=== PATIENT | male | born 1960 | race Two or more races ===

== ENCOUNTER 2024-12-24 14:22 | Emergency (ER) | payer OTHER ==
[~2024-12-24] VITALS: Ht 162.6 cm; Wt 68.9 kg
--- NOTE | 2024-12-24 14:30 | NUR ---
CT READY FOR PT. LEONA GAYTAN MADE AWARE
--- NOTE | 2024-12-24 14:48 | HMCIMG ---
EXAM: CT Head Without IV contrast. CLINICAL HISTORY: LEFT EYE BLURRED VISION TECHNIQUE: Axial computed tomography images of the head/brain without intravenous contrast. COMPARISON: None provided. FINDINGS: BRAIN: No evidence of acute hemorrhage. No mass lesion. No CT evidence for acute territorial infarct. No midline shift or extra-axial collections. VENTRICLES: No hydrocephalus. ORBITS: The orbits are unremarkable. SINUSES AND MASTOIDS: The paranasal sinuses and mastoid air cells are clear. BONES: No fracture. SOFT TISSUES: Unremarkable. IMPRESSION: No acute intracranial abnormality. /[place]
[2024-12-24 14:57] LABS: IMMATURE GRANULOCYTE ABSOLUTE 0.03 K/uL (0-1); NUCLEATED RED BLOOD CELLS 0.0 % (0.0-0.19); PLATELET COUNT (AUTO) 179 K/uL (130-400); RED BLOOD CELL COUNT(AUTO) 4.77 MIL/uL (4.00-5.50); RED CELL DISTRIBUTION WIDTH 12.5 % (11.0-15.5); WHITE BLOOD COUNT (AUTO) 11.5 K/uL (4.8-10.8)
[2024-12-24 15:06] LABS: CREATININE 0.9 mg/dL (0.5-1.0); GLOMERULAR FILTR. RATE CALC 72.0 mL/min (>90); GLUCOSE,RANDOM 183.0 mg/dL (70-105); SODIUM SERUM 139.0 mmol/L (136-145); UREA NITROGEN, BLOOD 18.0 mg/dL (7-18)
[2024-12-24 16:12] VITALS: BP 107/77; PULSE 85; RESP 16; TEMP 98.1; O2SAT 98
[2024-12-24] MEDS ORDERED: ACYC-138 PO (16:13)
[2024-12-24] MEDS ORDERED: PRED20TA3 PO ×2 (16:13→16:14)
--- NOTE | 2024-12-24 16:26 | ERN ---
General Chief Complaint: Stroke Symptoms Stated Complaint: STROKE SYMPTOMS Time Seen by MD: 15:02 Time Seen by Midlevel: 15:02 Source: patient History of Present Illness Initial Comments Patient is a 64-year-old male presenting to the emergency department for evaluation of left facial droop that began several days ago but worsened today. No other symptoms are reported. Patients specifically denies any numbness/weakness to his upper and lower extremities. Patient is neurologically at his baseline according to family members. There was no slurred speech, confusion, or altered mental status at this time. Patient has no other complaints. Family states a similar episode occurred 10 years ago which resolved after two weeks after medication was prescribed. Allergies: Coded Allergies: No Known Drug Allergies (Unverified Allergy, Unknown, 12/24/24) Home Meds Active Scripts Prednisone (Prednisone) 20 Mg Tablet, 1 TAB PO DAILY for 10 Days, #10 TAB 0 Refills Prov:KRYSTAL PRITCHETT [facility] 12/24/24 Acyclovir (Acyclovir) 800 Mg Tablet, 1 TAB PO 5XDAY for 7 Days, #35 TAB 0 Refills Prov:KRYSTAL PRITCHETT [facility] 12/24/24 Discontinued Scripts Prednisone (Prednisone) 20 Mg Tablet, 1 TAB PO BID for 7 Days, #14 TAB 0 Refills TAKE 1 TAB BY MOUTH THREE TIMES PER DAY X3 DAYS, THEN TAKE 1 TAB BY MOUTH TWICE A DAY X2 DAYS, THEN TAKE 1 TAB BY MOUTH ONCE A DAY X1 DAY. Prov:KRYSTAL PRITCHETT [facility] 12/24/24 Past Medical History Past Medical History: No Pertinent History Past Surgical History: None ROS Dictation CONSTITUTIONAL: Negative except for HPI HEAD/FACE: Negative except for HPI EENT: Negative except for HPI RESPIRATORY: Negative except for HPI GASTROINTESTINAL/ABDOMINAL: Negative except for HPI GENITOURINARY: Negative except for HPI MUSCULOSKELETAL: Negative except for HPI INTEGUMENTARY: Negative except for HPI NEUROLOGICAL/PSYCH: Negative except for HPI HEMATOLOGIC/LYMPHATIC: Negative except for HPI All Systems Negative, Except as noted above. 13 point review of systems assessed and all negative except for above. Physical Exam Physical Exam Dictation Vital Signs reviewed General Appearance: Alert, oriented x 3, no acute distress, well developed, nourished. Head and Face: non-traumatic. Eyes: PERRL, pink conjunctivas, eyelid no trauma, anterior chamber with arcus senilis. Ears: Pinnas intact and no signs of trauma or erythema ear canals clear and no discharge TM no erythema Nose: No discharge, no bleeding. Oropharynx: Mouth normal, tongue pink, pharynx clear,no erythema, tonsils no exudates, no abscesses noted, mucous membrane moist Neck: Supple, non-tender, no thyromegaly, no masses, no JVD, no bruits Breast:Deferred Chest:No tenderness, no crepitus, no paradoxical movement, no retractions Lungs:Clear, well-ventilated, symmetric, no rales, no wheezing, no rhonchi, no stridor, good breath sounds bilaterally Heart: Regular rate, regular rhythm, no murmur, no gallops Vascular: no peripheral edema, Abdomen: Soft, positive bowel sounds, nondistended, no guarding, nontender, no rebound, no masses no hepatomegaly, no splenomegaly, no Peck's sign, no hernias. Rectal: Deferred Genital: Deferred Neurological: Normal speech, left facial droop with left forehead involvement Musculoskeletal: Neck nontender, full range of motion, back nontender, full range of motion, Extremities: nontender, full range of motion Skin: Color pink, dry, no turgor, no rash, no lacerations, no abrasions, no contusions. Lymphatic: Deferred NIH STROKE SCALE: NIH STROKE SCALE Response (Comments) Value Level of Consciousness Alert 0 Ask patient month and their age Answers both correct 0 Command to open eyes, make fist and let go Obeys both correct 0 Best gaze (horizontal eye movement) Normal 0 Visual Field Testing No Visual Field Loss 0 Facial Paresis Minor Paralysis 1 Motor Function - Left Arm Normal 0 Motor Function - Right Arm Normal 0 Motor Function - Left Leg Normal 0 Motor Function - Right Leg Normal 0 Limb Ataxia No Ataxia 0 Sensory-pin prick to arms, legs, trunk and face Normal 0 Best Language (describe picture, name items and read) No Aphasia 0 Dysarthria (read several words) Mild-Mod. Slurring Words 1 Extinction and Inattention Normal 0 Total 2 Results Laboratory and Microbiology Lab and Micro Result Laboratory Tests Test 12/24/24 14:53 White Blood Count 11.5 K/uL (4.8-10.8) H Red Blood Count 4.77 MIL/uL (4.00-5.50) Hemoglobin 14.7 g/dL (12.0-16.0) Hematocrit 42.3 % (36-48) Mean Corpuscular Volume 88.7 fL (79-99) Mean Corpuscular Hemoglobin 30.8 pg (27.0-33.0) Mean Corpuscular Hemoglobin Concent 34.8 g/dL (32.0-36.0) Red Cell Distribution Width 12.5 % (11.0-15.5) Platelet Count 179 K/uL (130-400) Mean Platelet Volume 11.2 fL (7.5-10.5) H Immature Granulocyte % (Auto) 0.3 % (0-1) Neutrophils (%) (Auto) 48.6 % (40.0-77.0) Lymphocytes (%) (Auto) 42.4 % (21.0-51.0) Monocytes (%) (Auto) 5.4 % (3.0-13.0) Eosinophils (%) (Auto) 2.9 % (0.0-8.0) Basophils (%) (Auto) 0.4 % (0.0-5.0) Neutrophils # (Auto) 5.6 K/uL (1.8-7.7) Lymphocytes # (Auto) 4.9 K/uL (1.0-4.8) H Monocytes # (Auto) 0.6 K/uL (0.1-1.0) Eosinophils # (Auto) 0.33 K/uL (0.00-0.70) Basophils # (Auto) 0.05 K/uL (0.00-0.20) Absolute Immature Granulocyte (auto 0.03 K/uL (0-1) Nucleated Red Blood Cells 0.0 % (0.0-0.19) Sodium Level 139 mmol/L (136-145) Potassium Level 4.0 mmol/L (3.5-5.1) Chloride Level 102 mmol/L (101-111) Carbon Dioxide Level 28 mmol/L (21-32) Blood Urea Nitrogen 18 mg/dL (7-18) Creatinine 0.9 mg/dL (0.5-1.0) Glomerular Filtration Rate Calc 72 mL/min (>90) Random Glucose 183 mg/dL (70-105) H Total Calcium 8.7 mg/dL (8.5-10.1) Labs Reviewed?: Yes MDM MDM: Patient is a 64-year-old male presenting to the emergency department for evaluation of left facial droop that began several days ago but worsened today. No other symptoms are reported. Patients specifically denies any numbness/weakness to his upper and lower extremities. Patient is neurologically at his baseline according to family members. There was no slurred speech, confusion, or altered mental status at this time. Patient has no other complaints. Family states a similar episode occurred 10 years ago which resolved after two weeks after medication was prescribed. On physical examination patient has a left facial droop with left forehead involvement. He has 5/5 strength to bilateral upper and lower extremity. Sensation is intact throughout his face, upper extremities, and lower extremities. A code stroke was called by triage nurse and the patient was sent to CAT scan. His CT scan is normal for an intracranial bleed. His CBC and chemistries are unremarkable. Based on history and physical examination I have a high clinical suspicion for Eduardo's palsy. Differential diagnosis: Intracranial bleed, stroke, Eduardo's palsy There are no social concerns with this patient. Prescription drug management Prescriptions will include: Acyclovir, prednisone Medical management and examination interpretation discussions were had by me with other qualified healthcare professionals as indicated for the patient's care. ED Course Orders Procedure Category Date Status Time Ct Head/Brain W/O CT 12/24/24 Resulted Contrast 14:27 12 Lead Ekg Tracing- EKG 12/24/24 Logged Technical 14:38 Basic Metabolic Panel LAB 12/24/24 Complete 14:38 Cbc With Differential LAB 12/24/24 Complete 14:38 Vital Signs Date Time Temp Pulse Resp B/P (MAP) Pulse Ox O2 Delivery O2 Flow Rate FiO2 12/24/24 16:12 98.1 85 16 107/77 98 Room Air* 0 12/24/24 15:10 98.1 87 16 122/75 98 Room Air* 0 12/24/24 14:28 99.0 94 18 138/95 98 Room Air 0 DX & DISP Disposition: Discharge Departure Impression: Primary Impression: Eduardo's palsy Condition: Stable Scripts Prednisone (Prednisone) 20 Mg Tablet 1 TAB PO DAILY for 10 Days, #10 TAB 0 Refills Prov: KRYSTAL PRITCHETT [facility] 12/24/24 Acyclovir (Acyclovir) 800 Mg Tablet 1 TAB PO 5XDAY for 7 Days, #35 TAB 0 Refills Prov: KRYSTAL PRITCHETT [facility] 12/24/24 Additional Instructions: Has been diagnosed with Eduardo's palsy, which is a temporary weakness or paralysis of the muscles on one side of your face. This happens when the facial nerve becomes inflamed or irritated. WHAT TO EXPECT: Most people begin to improve within 2-3 weeks, and a full recovery may take up to three months. Some mild facial weakness or tightness may linger for a few months. The condition is not life-threatening and does not affect the brain. HOME CARE: 1. Medications: Take prednisone and or antiviral medication exactly as prescribed. 2. Eye protection: Because the eyelid may not close completely, your eye can dry out. Use artificial tears/lubricating eyedrops during the day in eye ointment at night. You may take the eyelid closed at bedtime to protect it while sleeping. Wear sunglasses outdoors to protect your eye from [place] when. 3. Facial Care: Dental facial muscle origin movement exercise may help prevent stiffness once approved by your provider. Avoid extreme cold or direct blowing air 100 face. Rest & Hydration: Plenty of rest and maintain good hydration. Manage stress, as it can slow recovery. Go to your nearest emergency department or call 911 if you develop weakness or numbness in other parts of your body, trouble speaking, walking, or swallowing. Double vision or loss of vision. Severe headaches, dizziness, or confusion. Schedule follow up appointment with your primary care provider or Neurology to monitor your recovery. If symptoms do not begin to improve within three weeks you may need further evaluation. Referrals: SELF,REFERRAL (PCP) Time of Disposition: 16:24 I have reviewed the case, and I agree with, Diagnosis and Plan I performed the substantive portion of the visit. I have reviewed and personally made and approve the management plan that is documented in the note by myself or the OC. I acknowledge for responsibility for the patient's management plan. KRYSTAL PRITCHETT Dec 24, 2024 16:26
--- NOTE | 2024-12-25 06:19 | EKG ---
[facility] Test Date: 2024-12-24 Test Time: 15:26:09 Pat Name: CONTRERAS HICKEY Department: ED Patient ID: [facility] [id number] Room: Gender: M Home Worker: [id number] : 1960 Requested By: YSABEL TOLEDO Order Number: [id number] Reading MD: Trace Andrade Measurements Intervals [place] Rate: 81 P: 39 TX: 163 QRS: -51 QRSD: 91 T: 17 QT: 346 QTc: 402 Interpretive Statements Sinus rhythm Left anterior fascicular block No previous ECG available for comparison Electronically Signed On 12-25-2024 16:33:35 CDT by Trace Andrade Please click the below link to view image of tracing.
== END 2024-12-24 16:45 | disposition home or self-care (01) ==
LOC: EDSEX 14:22 → EDH 14:22
DX: G51.0 Bell's palsy (principal); Z79.52 Long term (current) use of systemic steroids; Z79.899 Other long term (current) drug therapy
CPT/HCPCS: 36415; 70450; 80048; 85025; 93005; 99284